=== PATIENT | female | born 1965 | race Two or more races ===

== ENCOUNTER 2024-05-06 09:30 | Day surgery (SDC) | payer BC, SELFPAY ==
[2024-05-05 16:23] VITALS: BMI 24.4
[2024-05-06] VITALS (8 sets, daily range): BP systolic 115–153; BP diastolic 71–90; PULSE 73–96; RESP 12–20; TEMP 36.6–36.7; O2SAT 96–100; BMI 23.4
[2024-05-06] MEDS: LIDOCAINE JELLY 2% (Urojet) 10 ML TUBE TOP (11:27)
[2024-05-06] MEDS: SODIUM CHLORIDE 0.9% 100 ML 20 ML IV (11:27)
[2024-05-06] MEDS: ONDANSETRON INJ 2 MG/ML INJ 2 ML 4 MG IV (11:28)
[2024-05-06] MEDS: DiphenhydrAMINE INJ 50 MG/ML VIAL 25 MG IV (11:28)
[2024-05-06] MEDS: fentaNYL CIT INJ 50 mCg/ML AMP 2ML (ASD USE ONLY) IV (11:29)
[2024-05-06] MEDS: MIDAZOLAM INJ 1 MG/ML VIAL 2 ML (ASD USE ONLY) 2 MG IV (11:29)
--- NOTE | 2024-05-06 14:42 | SUR.PHASEII ---
1134: Pt into recovery. Report from [place] [facility]. Pt sleepy. Easily aroused then drifts back to sleep. Resp even, unlabored. VS stable. Denies pain. 1200: Pt more awake, alert. VS stable. Denies pain. Sitting up tolerating po fluids with no difficulty swallowing and no n/v. 1228: Pt fully awake, oriented x3. Pt assisted to restroom. Ambulation steady. Pt requested daughter interpret for her. Both stated understanding of discharge instructions. Pt discharged from [facility] in stable condition.
== END 2024-05-06 12:28 | disposition home or self-care (01) ==
PROVIDERS: PCP Family Medicine; Referring Provider Specialist; Visit Provider Specialist
PROC: 0DJD8ZZ Inspection of Lower Intestinal Tract, Via Natural or Artificial Opening Endoscopic (ICD-10-PCS; CPT 45330; principal; 2024-05-06 10:00)
DX: K64.9 Unspecified hemorrhoids (principal)
CPT/HCPCS: 46945; 45330; A4649; J1200; J2250; J2405; J3010; J7050

== ENCOUNTER → 2024-12-15 | Outpatient (CLI) | payer BC, SELFPAY ==
--- NOTE | 2024-12-15 11:31 | XR_ITS ---
Examination: Pelvic ultrasound, transabdominal, complete Technique: Transabdominal ultrasound of the pelvis performed using grayscale imaging Date and time of exam: December 15, 2024 1136 hours INDICATIONS: Pelvic pain beginning one month ago, hysterectomy FINDINGS: Absent uterus Ovaries obscured by bowel gas IMPRESSION: Severely limited study as above No pelvic mass demonstrated
== END | disposition home or self-care (01) ==
PROVIDERS: Referring Provider Specialist; Visit Provider Specialist
DX: R10.2 Pelvic and perineal pain (principal); K62.89 Other specified diseases of anus and rectum
CPT/HCPCS: 76856